=== PATIENT | female | born 1970 | race Caucasian/White ===

== ENCOUNTER 2017-02-12 10:21 | Emergency (ER) | payer OTHER, BC ==
[2017-02-12 10:31] VITALS: BP 136/76
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
== END 2017-02-12 11:22 | disposition home or self-care (01) ==
LOC: LB.ED 10:21
DX: S00.03XA Contusion of scalp, initial encounter (principal); M25.561 Pain in right knee; I10 Essential (primary) hypertension; Z79.899 Other long term (current) drug therapy; V92.09XA Drowning and submersion due to fall off unspecified watercraft, initial encounter
CPT/HCPCS: 70450; 73610-RT; 99284-25